=== PATIENT | male | born 1960 | race Hispanic/Latino ===

== ENCOUNTER → 2016-03-19 | Outpatient (CLI) | payer MEDICARE ==
--- NOTE | 2016-03-19 11:35 | MRI ---
EXAM DESCRIPTION: MR LUMBAR SPINE WITHOUT IV CONTRAST CLINICAL HISTORY: 55 y/o M, RADICULOPATHY COMPARISON: None TECHNIQUE: Multi planar, multi sequence imaging of the lumbar spine was acquired without IV contrast. FINDINGS: Vertebral body height, and marrow signal are unremarkable. There is disc desiccation from L2-3 through L5-S1 with height loss at L3-4. Grade 1 anterolisthesis of L3 on L4. The conus terminates at L1-L2. It is unremarkable. L1-L2: Unremarkable. L2-L3: 3 mm circumferential disk bulge. Mild facet degeneration. The midline diameter of the spinal canal is adequate at 1 cm. Mild bilateral neural foraminal narrowing noted, right greater than left. L3-4: Circumferential disk osteophyte complex and moderate facet degeneration. The midline diameter of spinal canal is reduced to 7-8 mm. Moderate bilateral neural foraminal narrowing noted with contact of the exiting right L3 nerve root. L4-5: Laterally projecting disc protrusions. No posterior disk pathology. Mild facet degeneration. No spinal canal or neural foraminal narrowing. L5-S1: Focal posterior disc protrusion and annular tear noted. No evidence of S1 nerve root contact. The midline diameter of spinal canal is unremarkable. Bilateral neural foramina are unremarkable. IMPRESSION: Today's exam demonstrates multilevel degenerative change most pronounced at L3-4. At this level there is considerable facet degeneration resulting in grade 1 anterolisthesis of L3 on L4. Electronically signed by: Keshawn Franklin MD 03/19/2016 11:34
== END ==
LOC: MRI 08:16
PROVIDERS: ATTEND Family Medicine
DX: M54.16 Radiculopathy, lumbar region (principal); M12.88 Other specific arthropathies, not elsewhere classified, other specified site; M43.16 Spondylolisthesis, lumbar region

== ENCOUNTER → 2016-05-28 | Outpatient (CLI) | payer MEDICARE | END | disposition home or self-care (01) | LOC: GMAB 10:58 | PROVIDERS: ATTEND Family Medicine | DX: Z12.5 Encounter for screening for malignant neoplasm of prostate (principal); I10 Essential (primary) hypertension | CPT/HCPCS: 84443; G0103 ==

== ENCOUNTER 2016-08-04 16:56 | Emergency (ER) | payer MEDICARE ==
[2016-08-04 17:42] VITALS: TEMP 98.5
--- NOTE | 2016-08-04 17:48 | RAD ---
EXAM DESCRIPTION: Lumbar Spine 3 Views CLINICAL HISTORY: 55 years ,Male left lower extremity sciatica COMPARISON: MRI lumbar spine dated 03/19/2016 TECHNIQUE: FINDINGS: There is straightening of the normal lordosis. Mild anterolisthesis of L3 on L4 which was present on the previous examination with narrowing of the L2-3 and L3-4 disc interspaces. This appears stable. Mild chronic appearing wedging at T11 and T12. Marginal osteophytosis most notable at the superior endplate of L4 which is stable. Vascular calcification. Pedicles appear intact. Mild leftward convexity curvature. IMPRESSION: No acute fracture is identified. Anterolisthesis and degenerative change at L3-L4 which appears unchanged from the prior MRI Electronically signed by: Jailene Ware 08/04/2016 5:48 PM CDT
[2016-08-04] MEDS ORDERED: HYDROcodone 5MG/APAP 325MG 1 EA TAB PO ONE (17:50)
[2016-08-04] MEDS ORDERED: KETOROLAC TROMETHAMINE INJ 30 MG/ML VIAL IM ONE (17:50)
[2016-08-04] MEDS ORDERED: GABAPENTIN 300 MG CAP PO ONE (17:50)
--- NOTE | 2016-08-04 18:00 | ED.PDOC ---
History of Present Illness - General Chief Complaint: Back Pain or Injury Stated Complaint: back pain Time Seen by Provider: 08/04/16 17:00 Source: patient, family Exam Limitations: no limitations - History of Present Illness Initial Comments: the patient is a 55-year-old male presenting to the emergency room secondary to acute on chronic back pain. He sees a back specialist. He is on chronic narcotics. Approximately a week ago he was lifting something when hefelt a pinch in his back. Since that time he has had significant left lower extremity sciaticaworsening over the last few days. He saw his primary care doctor yesterday and received a couple of steroid injections. Pain got better briefly but once the lidocaine wore offthe pain came back. No incontinence. He has had sciatica in that distribution before. No other trauma. No new symptoms. Pain is just more intense than it normally is. Timing/Duration: 1 week, constant, getting worse Severity: moderate Improving Factors: immobilization Worsening Factors: movement Associated Symptoms: denies symptoms Allergies/Adverse Reactions: Allergies NO KNOWN ALLERGY Allergy (Verified 08/04/16 17:43) Home Medications: Ambulatory Orders Gabapentin 300 mg PO TID #21 cap 08/04/16 Review of Systems - Review of Systems Constitutional: States: no symptoms reported EENTM: States: no symptoms reported Respiratory: States: no symptoms reported Cardiology: States: no symptoms reported Gastrointestinal/Abdominal: States: no symptoms reported Genitourinary: States: no symptoms reported Musculoskeletal: States: see HPI Skin: States: no symptoms reported Neurological: States: see HPI Endocrine: States: no symptoms reported All other Systems: No Change from Baseline Past Medical History (General) - Patient Medical History Hx Cardiac Disorders: Yes Hx Hypertension: Yes - Vaccination History Hx Tetanus, Diphtheria Vaccination: No Hx Influenza Vaccination: No Hx Pneumococcal Vaccination: No - Social History Hx Tobacco Use: No Hx Alcohol Use: No Hx Substance Use: No Hx Substance Use Treatment: No Hx Depression: No - Activities of Daily Living Hospice Agency (if applicable):: None - Female History Patient is a Female of Child Bearing Age (10 -59 yrs old): No Patient : No Family Medical History - Family History Mother Living Status: Hx Family;Other: "respiratory" Physical Exam - Physical Exam General Appearance: Alert, No apparent distress Eye Exam: bilateral normal Ears, Nose, Throat: hearing grossly normal, normal pharynx Neck: full range of motion Respiratory: no respiratory distress, no accessory muscle use Cardiovascular/Chest: normal peripheral pulses Peripheral Pulses: radial,right: 2+, radial,left: 2+, dorsalis pedis,right: 2+, dorsalis pedis,left: 2+ Rectal Exam: deferred Back Exam: other - the patient has tenderness to palpation to the left of his L3 -L5area. Obvious muscle spasm. No spinous process tenderness. No obvious acute trauma. Extremity: non-tender, normal inspection, no pedal edema, no calf tenderness, normal capillary refill, other - strength is preserved. Sensation is preserved. No obvious deformity. Pain is radicular. Neurologic: bag turner II-XII nml as tested, alert, normal mood/affect, oriented x 3 Skin Exam: normal color Comments: Vital Signs - 8 hr 08/04/16 17:05 Temperature 98.5 F Pulse Rate [ 63 pulse ox] Respiratory 20 Rate Blood Pressure 181/97 [Left Arm] O2 Sat by Pulse 99 Oximetry Progress - Progress Progress: 08/04/16 18:01 the patient is a 55-year-old male presenting with left lower extremity sciatica recurrence. 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 This has been going on for several days now. The patient needs to continue an oral anti-inflammatory such as Aleve. He can continue the Flexeril that he is currently taking. We will add gabapentin on boardfor the next week. He does need to be careful with this medication as it can make him drowsy. He needs to follow-up with his back specialist. Additionally a chiropractor may benefit with this acute episode of sciatica. The patient received a dose of hydrocodone Toradol and gabapentin here tonight for pain relief. ER warnings were given. - Results/Orders Results/Orders: x-ray of his lumbar spine shows no acute changes. Departure - Departure Clinical Impression: Sciatica associated with disorder of lumbar spine Qualifiers: Laterality: left Qualified Code(s): M54.32 - Sciatica, left side Disposition: Discharge to Home or Self Care Condition: Fair Departure Forms: ED Discharge - Pt. Copy, Patient Portal Self Enrollment Instructions: DI for Back Pain With Sciatica Diet: regular diet Activity: increase activity as tolerated Referrals: Wojciech Mayen MD [Primary Care Provider] - 1-2 Weeks Prescriptions: Gabapentin 300 mg PO TID #21 cap Home Medications: Ambulatory Orders Gabapentin 300 mg PO TID #21 cap 08/04/16 Additional Instructions: the patient is a 55-year-old male presenting with left lower extremity sciatica recurrence. 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 This has been going on for several days now. The patient needs to continue an oral anti-inflammatory such as Aleve. He can continue the Flexeril that he is currently taking. We will add gabapentin on boardfor the next week. He does need to be careful with this medication as it can make him drowsy. He needs to follow-up with his back specialist. Additionally a chiropractor may benefit with this acute episode of sciatica. The patient received a dose of hydrocodone Toradol and gabapentin here tonight for pain relief. ER warnings were given. topical heat and a small amount of inversion therapy may also help symptomatically. he should also follow-up with his primary care doctor before the weekend.
[2016-08-04 18:33] VITALS: BP 191/89; O2SAT 97
== END 2016-08-04 18:28 | disposition home or self-care (01) ==
LOC: ER 16:56
DX: M54.42 Lumbago with sciatica, left side (principal); I10 Essential (primary) hypertension; Z79.899 Other long term (current) drug therapy
CPT/HCPCS: 72100; J1885

== ENCOUNTER → 2016-12-23 | Outpatient (CLI) | payer MEDICARE | END | disposition home or self-care (01) | LOC: GMAB 14:57 | PROVIDERS: ATTEND Family Medicine | DX: R30.0 Dysuria (principal) ==

== ENCOUNTER → 2017-05-02 | Outpatient (CLI) | payer MEDICARE ==
--- NOTE | 2017-05-02 10:32 | CT ---
EXAM DESCRIPTION: CT ABDOMEN AND PELVIS WITHOUT AND WITH CONTRAST CLINICAL HISTORY: GENERALIZED ABDOMINAL PAIN COMPARISON: None Available. TECHNIQUE: CT of the abdomen and pelvis are performed prior to and during IV bolus administration of 100 mL of Isovue 300. No oral contrast was given. FINDINGS: In the lower chest, heart is large and there is coronary calcification. No lower lung pulmonary infiltrate. Precontrast images show no focal lesion of liver, spleen, pancreas or kidneys. Liver is normal in size and parenchymal appearance on the postcontrast images with normal enhancement of intrahepatic vessels and no focal lesion. Spleen, pancreas, and kidneys are unremarkable on postcontrast images except for tiny renal cysts. No focal splenic lesion. Normal splenic and renal and pancreatic enhancement. Small accessory splenule is present. There is no lymphadenopathy, inflammation, or free fluid observed. In the pelvis, prostate is large measuring 4.9 cm in transverse dimension. No stones in the distal ureters or bladder. Sigmoid diverticulosis is present. No inflammation around the appendix or cecum or terminal ileum. No changes to suggest sigmoid diverticulitis. No rectal mass or wall thickening. Coronal and sagittal reformatted images confirm the findings. Degenerative changes are seen in the lower L-spine with grade 1 anterolisthesis of L3 on L4. Anterior wedging of mild degree is seen in the lower T-spine. Splenic length of 13.4 cm is mildly increased. Liver length of 17 cm is normal. Calcification of the lower abdominal aorta and renal artery origins and left common iliac origin may indicate stenoses. Origin of the superior mesenteric artery appears stenotic on both axial and sagittal images. IMPRESSION: No acute upper abdominal process. Arteriosclerotic changes at the origins of superior mesenteric artery, renal arteries, and common iliac arteries suggesting stenoses. Enlarged prostate. Prominent spleen. This exam was performed according to our departmental dose-optimization program, which includes automated exposure control, adjustment of the mA and/or kV according to patient size and/or use of iterative reconstruction technique. Total DLP equals 1750.66 Electronically signed by: Everett Simental MD 05/02/2017 10:31 AM CDT
== END ==
LOC: CT 09:03
PROVIDERS: ATTEND Family Medicine
DX: R10.84 Generalized abdominal pain (principal); N40.0 Benign prostatic hyperplasia without lower urinary tract symptoms

== ENCOUNTER → 2017-06-07 | Outpatient (CLI) | payer MEDICARE | LOC: GMAB 14:07 | PROVIDERS: ATTEND Family Medicine | DX: R07.2 Precordial pain (principal) ==

== ENCOUNTER → 2018-03-21 | Outpatient (CLI) | payer MEDICARE | LOC: GMAE 16:51 | PROVIDERS: ATTEND Family Medicine | DX: R94.6 Abnormal results of thyroid function studies (principal) ==

== ENCOUNTER → 2018-10-04 | Outpatient (CLI) | payer MEDICARE | LOC: GMAE 10:21 | PROVIDERS: ATTEND Family Medicine | DX: I10 Essential (primary) hypertension (principal); E11.9 Type 2 diabetes mellitus without complications; E78.2 Mixed hyperlipidemia ==

== ENCOUNTER → 2019-10-08 | Outpatient (CLI) | payer MEDICARE | LOC: GMAE 10:14 | PROVIDERS: ATTEND Family Medicine | DX: Z12.5 Encounter for screening for malignant neoplasm of prostate (principal); I10 Essential (primary) hypertension; E11.9 Type 2 diabetes mellitus without complications; E78.2 Mixed hyperlipidemia | CPT/HCPCS: 84443; G0103 ==